=== PATIENT | female | born 2000 | race Caucasian/White ===

== ENCOUNTER 2024-11-07 07:15 | Emergency (ER) | payer OTHER ==
[~2024-11-07] VITALS: Ht 170.2 cm; Wt 65.9 kg
[2024-11-07 07:28] VITALS: BP 112/69; PULSE 120; RESP 18; TEMP 100.3; O2SAT 99
[2024-11-07 07:50] LABS: COVID AG,FIA SOURCE NASAL SWAB
[2024-11-07] MEDS: ACETAMINOPHEN 500 MG TABLET PO ONE (08:03)
[2024-11-07 08:16] LABS: SARS-COV2 (COVID) ANTIGEN,FIA Negative (Negative)
[2024-11-07 08:33] LABS: RAPID GROUP A STREP NEGATIVE (NEGATIVE)
[2024-11-07 08:34] LABS: INFLUENZA TYPE A POSITIVE FOR TYPE A (NEGATIVE)
[2024-11-07 08:35] LABS: INFLUENZA TYPE B NEGATIVE FOR TYPE B (NEGATIVE)
[2024-11-07] MEDS ORDERED: OSEL75CA45 PO (08:37)
[2024-11-07] MEDS ORDERED: IBUP-1492 PO (08:41)
== END 2024-11-07 08:53 | disposition home or self-care (01) ==
LOC: EMS 07:20
DX: J10.1 Influenza due to other identified influenza virus with other respiratory manifestations (principal); Z20.822 Contact with and (suspected) exposure to COVID-19
CPT/HCPCS: 87430; 87804; 99283